=== PATIENT | male | born 1965 | race Caucasian/White ===

== ENCOUNTER 2023-09-12 18:51 | Inpatient (IN) | payer OTHER, SELFPAY ==
[2023-09-12 16:32] VITALS: BP 170/89; BMI 36.7
[2023-09-12 16:56] LABS: % Basophils 0.8 % (0-2); % Eosinophils 2.1 % (0-6); % Immature Granulocytes 0.4 % (0-0.5); % Monocytes 6.8 % (1.7-9.3); % Neutrophils 56.9 % (42.2-75.2); Absolute Basophils 0.1 10^3/uL (0-0.2); Absolute Eosinophils 0.3 10^3/uL (0-0.7); Absolute Immature Granulocytes 0.1 10^3/uL (0-0.05); Absolute Lymphocytes 3.9 10^3/uL (1.2-3.4); Absolute Monocytes 0.8 10^3/uL (0.1-0.6); Absolute Neutrophils 6.8 10^3/uL (1.4-6.5); Hematocrit 45.4 % (39.0-52.0); Hemoglobin 16.3 g/dL (13.0-18.0); Mean Corp Hgb Conc. 35.9 g/dL (33.0-37.0); Mean Corpuscular Hgb 30.3 pg (27.0-31.0); Mean Corpuscular Volume 84.4 fL (80.0-94.0); Mean Platelet Volume 8.9 fL (7.4-10.4); Nucleated Red Blood Cells % 0 % (-); Platelet Count 366 10^3/uL (130-400); Red Blood Cell Count 5.38 10^6/uL (4.70-6.10); Red Cell Dist. Width 12.3 % (11.5-14.5); White Blood Cell Count 11.9 10^3/uL (4.8-10.8)
[2023-09-12 17:03] VITALS: BP 114/76
[2023-09-12 17:11] LABS: ALT (SGPT) 28 U/L (0-50); AST (SGOT) 36 U/L (17-59); Albumin 3.9 g/dl (3.5-5.0); Alkaline Phosphatase 66 U/L (38-126); Blood Urea Nitrogen 16 mg/dl (9-20); Calcium 9.3 mg/dl (8.4-10.2); Carbon Dioxide 26 mmol/L (22-30); Chloride 105 mmol/L (98-107); Estimated Creatinine Clearance 124 ml/min; Glucose 183 mg/dl (70-99); Sodium 138 mmol/L (135-145); Total Bilirubin 0.8 mg/dl (0.2-1.3); Total Protein 6.4 g/dl (6.3-8.2); eGFR > 60.00
--- NOTE | 2023-09-12 17:17 | ED.GENMED ---
History of Present Illness
General
Chief Complaint: Chest Pain
Source: patient and records
Exam Limitations: none
Time Seen by Provider: 09/12/23 16:47
Nursing documentation reviewed up to this point in time: agreed with except (Patient now tells me he is having chest pain)
Travel History
Have you had any contact with someone who has COVID-19?: No
Do you have any symptoms of coronavirus? Fever > 100 degrees, chills, cough, shortness of breath, sore throat, loss of taste or smell, muscle aches, or headache?: No
History of Present Illness
History of Present Illness:
57-year male presents with chest pain shortness of breath started on Wednesday pressure in his chest into his back worse with exertion last night he had pain through the night at rest, which improved and then today around noon he had another episode
of pain at rest he is not a smoker, does not nitroglycerin to take, still having 3-4 out of 10 pain tells the pain is similar to his prior angina
Past History
Past History
ED Past Medical History: CAD, HTN and Other (Kidney stones)
ED Past Surgical History: Cardiac and Other (Fistula X2,)
Social History
Tobacco: Smoker
Alcohol: Occasional
Drug: None
Personal:
Living: with family
Employment: Employed
Review of Systems
Review of Systems
All Other Systems: Not applicable
Constitutional: Denies fever or fatigue
EENT: Reports no symptoms
Respiratory: Reports trouble breathing
Cardiac: Reports chest pain; Denies diaphoresis or palpitations
ABD/GI: Reports no symptoms
: Reports no symptoms
Musculoskeletal: Reports no symptoms
Skin: Reports no symptoms
Neurological: Reports no symptoms
Phy Exam
Physical Exam
Physical Exam:
Physical Exam
General: no apparent distress, not acutely ill
Neck: No jaundice
Heart: s1/s2 regular rate and rhythm, no murmur. equal radial pulses.
Lungs: no acute respiratory distress. clear bilaterally
Abdomen: Nontender
Neuro: alert and oriented. no focal neurological deficits
Skin: no rash
Psychiatric: well kept. interactive and cooperative
Extremities: no edema. no calf tenderness.
Scores
Heart Score for Chest Pain Patients
STEMI patient?: No
History: Highly Suspicious
ECG: Nonspecific Repolarization
Age: >45 - <65 years
Risk Factors: >/= 3 Risk Factors or History of CAD
Troponin: >/= 3 x Normal Limit
Heart Score for Chest Pain Patients: 8
Heart Score Risk: 72.7 % MACE over next 6 weeks
Course
Orders/Labs/Results
Orders:
Orders
09/12/23 16:31
Electrocardiogram (*1) Urgent
Reason for Study: Chest Pain
EKG- Treatment ONCE
09/12/23 16:46
Complete Blood Count/With Diff Urgent
Comprehensive Metabolic Panel Urgent
Troponin I Urgent
09/12/23 17:17
Aspirin Chewable [Low Strength Aspirin] 324 mg PO NOW STA
09/12/23 17:28
Heparin 4,000 units IV NOW STA
Nitroglycerin Sublingual [Nitrostat (Sublingual)] 0.4 mg SL [id number] PRN
Pharmacy Request to Place See Dose Instructions PO NOW STA
Discontinue all Active Warfarin orders?: Yes
09/12/23 17:29
PTT Urgent
Comment: Obtain baseline before beginning heparin infusion if not already collected
Nursing to Place Non Medication Order As Directed
Physician Order: PTT 6 hours after initial start of Heparin infusion
09/12/23 17:30
Heparin 42278 Units/250 ml 25,000 units in 250 ml IV PER PROTOCOL
Weight to be used for heparin protocol in kilograms (kg):: 122.47
Protocol:: Cardiac Tx/Acute Coronary
PTT Goal Range to be used:: PTT 73 to 111 seconds
Order type:: Initial
INITIAL Infusion Dose (UNITS/KG/hr) & then follow protocol:: 12 units/kg/hr
Infusion Dose in UNITS/hr & then follow protocol (UNITS/hr):: 1,000
INFUSION RATE in mL/hr & then follow protocol (mL/hr):: 10
PTT less than or equal to 64 seconds:: Increase rate by 200 units/hr (+ 2 mL/hr)
PTT 64.1 to 72.9 seconds:: Increase rate by 100 units/hr (+ 1 mL/hr)
PTT 73 to 111 seconds:: Target Range. No change in rate.
PTT 111.1 to 130.9 seconds:: Decrease rate by 100 units/hr (- 1 mL/hr)
PTT 131 to 199.9 seconds:: HOLD for 1 hr. Then decrease rate by 200 units/hr (- 2 mL/hr)
PTT greater than or equal to 200 seconds:: HOLD for 2 hrs & Notify Provider. Then decrease by 200 units/hr (-
2 mL/hr)
Lab follow-up:: Each change, PTT q6h until 2 consecutive are therapeutic. Then PTT
daily.
09/12/23 18:[address] See Dose Instructions IV DIRECTED
Abnormal Lab Results
09/12/23
16:46
WBC 11.9 H 10^3/uL
(4.8-10.8)
Abs Immat Gran (auto) 0.1 H 10^3/uL
(0-0.05)
Absolute Neuts (auto) 6.8 H 10^3/uL
(1.4-6.5)
Absolute Lymphs (auto) 3.9 H 10^3/uL
(1.2-3.4)
Absolute Monos (auto) 0.8 H 10^3/uL
(0.1-0.6)
Glucose 183 H mg/dl
(70-99)
Troponin I 1.060 H* ng/ml
09/12/23 16:46
09/12/23 16:46
Vital Signs
Initial and Last Documented VS:
Initial Vital Signs
Temp Pulse Resp BP Pulse Ox
98.5 F 91 16 170/89 99
09/12/23 16:32 09/12/23 16:32 09/12/23 16:32 09/12/23 16:32 09/12/23 16:32
Last Documented Vital Signs
Temp Pulse Resp BP Pulse Ox
98.5 F 80 16 114/76 95
09/12/23 16:32 09/12/23 17:03 09/12/23 17:03 09/12/23 17:03 09/12/23 17:03
*Pulse Oximetry
Patient hypoxic: no
*EKG
Interpreted by ED Provider?: Yes
Interpretation: abnormal
Comparison EKG: no comparison EKG present
Heart Rate: 78
Rate: normal
Rhythm: sinus
Ischemia: other (old inferior )
*Income Tax Investigator Interpretation
Rate: normal
Interpretation: normal
Heart Rate: 78
Rhythm: sinus
*Critical Care Note
Total Time (30-74mins, 75-104mins- exclusive of procedures): 31
Data Reviewed
Review of Other/Old Records Reveals: Labs, Progress Notes and Discharge Summary
Source: records
Update Note
Update Note:
Update troponin noted patient now tells me he is having chest pain 3-4 out of 10 will start nitrates heparin aspirin
ED Attending Note
-
Portions of this chart may have been created with voice recognition software.� Occasional wrong word or��sound alike� substitutions may have occurred due to the inherent limitations of voice recognition software.
Discharge Plan
Departure
Prescriptions:
No Action
atorvastatin 80 mg Tablet
80 mg PO QPM 30 Days Qty: 30 0RF
aspirin 81 mg Tablet,Chewable
81 mg PO DAILY 30 Days Qty: 30 0RF
clopidogrel 75 mg Tablet
75 mg PO DAILY Qty: 90 5RF
pantoprazole 40 mg Tablet,Delayed Release (Dr/Ec)
40 mg PO DAILY Qty: 90 5RF
metoprolol tartrate 25 mg tablet
25 mg PO DAILY
Referrals:
Sterling See DO [Family Provider] -
Interventions
Interventions:
*Risk Screen - Suicide Last Done: 09/12/23 16:34
*General Assessment Last Done: 09/12/23 17:02
*Neglect/Abuse Screening Last Done: 09/12/23 16:34
*ED COVID-19 Vaccine History Last Done: 09/12/23 16:32
ED- Cardiac Assessment Last Done: 09/12/23 17:02
[2023-09-12] MEDS: LOW STRENGTH ASPIRIN 324 MG PO (17:20)
--- NOTE | 2023-09-12 17:44 | HPS.HSE ---
Addendum entered and electronically signed by Romeo Vides MD 09/12/23 18:23:
Seen and examined by me independently in collaboration with the nurse practitioner Shola Mclaughlin.
Past medical history/social history/medication/allergies reviewed.
Lab data and imaging data reviewed.
Patient with known CAD and prior LAD and circumflex PCI presents with intermittent chest pain ongoing since Wednesday. Currently chest pain-free. Concerned about cardiac. His troponin is elevated on admission. EKG without any acute ST-T
changes. Clinical scenario suspicious for non-ST elevation DE. Patient states he is compliant with his medication at home. Continue with his home medication. Started on IV heparin. Cardiology consulted. Ordered as needed nitroglycerin for
chest pain.
Original Note:
Family Physician
-
Family Physician: Sterling See
Chief Complaint
-
chest pain
History of Present Illness
57-year male with PMH for CAD,HTN, HLD presents with chest pain shortness of breath started on Wednesday. stated pain was intermittent , radiating to back and shoulder blade. took Tylenol with no relief. last night it got worse. stated sob worse
with exertion. Denies headache, dizziness, syncopal episode .patient denied fever, chills .denied abdominal pain, nausea, vomiting, diarrhea. Patient denied dysuria hematuria.
On arrival her elevated Trope. Initiated on heparin drip. Admitted for further management
Medical History
Past Medical History
Past Medical History: Reports Other
Additional Past Medical History:
Coronary artery disease
Hypertension
Hyperlipidemia
Kidney stones
Past Surgical History: Reports Other
Additional Past Surgical History:
Torn meniscus repair
Social History
Tobacco: Non-smoker
Alcohol: None
Drug: None
Personal:
Living: With Family
Employment: Employed
Family History
Family History: Not pertinent
Allergies / Home Medications
Allergies reflects when Allergies were last updated in [facility].
Home Medications with original date entered in [facility]
Allergy/Medication List:
Allergies
Allergy/AdvReac Type Severity Reaction Status Date / Time
raspberry Allergy Hives - Verified 09/12/23 16:34
Raspberry
Jell-O
Home Medications
aspirin 81 mg chewable tablet 81 mg PO DAILY Blood clot prevention/tx 30 days #30 tabs 03/18/22
atorvastatin 80 mg tablet 80 mg PO QPM High cholesterol 30 days #30 tabs 03/18/22
clopidogrel 75 mg tablet 75 mg PO DAILY #90 tabs 03/27/22
pantoprazole 40 mg tablet,delayed release 40 mg PO DAILY #90 tabs 03/27/22
metoprolol tartrate 25 mg tablet 25 mg PO DAILY Blood pressure 04/12/23
Review of Systems
-
Constitutional: Reports No Symptoms
EENT: Reports No Symptoms
Respiratory: Reports Trouble Breathing
Cardiac: Reports Chest Pain
Abdomen/GI: Reports No Symptoms
: Reports No Symptoms
Musculoskeletal: Reports No Symptoms
Skin: Reports No Symptoms
Neurological: Reports No Symptoms
Endocrine: Reports No Symptoms
Hematologic/Lymphatic: Reports No Symptoms
Psych: Reports No Symptoms
Physical Exam
Vital Signs
Vital Signs
Temp Pulse Resp BP Pulse Ox
98.5 F 80 16 114/76 95
09/12/23 16:32 09/12/23 17:03 09/12/23 17:03 09/12/23 17:03 09/12/23 17:03
Physical Exam
General: Well Developed, Well Nourished and No Apparent Distress
HEENT: NormoCephalic, Moist mucous membranes and Atraumatic
Respiratory: Clear
Cardiac: S1/S2 and Regular Rhythm; No Murmur or Rub
GI: Soft, Non Tender, Non Distended and Normal Bowel Sounds; No Organomegaly
Rectal: Deferred by Provider
Musculoskeletal: No Clubbing, No Cyanosis and No Edema
Skin: No Rash
Neuro: AO x 3 and Nonfocal/grossly intact
Psych: Calm
Laboratory Results
-
09/12/23 16:46
09/12/23 16:46
Laboratory Results
Total Bilirubin 0.8 mg/dl (0.2-1.3) 09/12/23 16:46
AST 36 U/L (17-59) 09/12/23 16:46
ALT 28 U/L (0-50) 09/12/23 16:46
Alkaline Phosphatase 66 U/L (38-126) 09/12/23 16:46
Troponin I 1.060 ng/ml H* 09/12/23 16:46
Data Reviewed
-
Lab Data: Labs Reviewed by me
Impression/Plan
-
# Chest pain associated with sob likely from acute coronary syndrome
-hxt of CAD with CAD stents x2
-Troponin 1.06
-Continue to trend troponin
-heparin drip
-asa, Plavix continued
-cardiology consulted
# Chronic leukocytosis
-WBCs 11.9
-Afebrile
-Continue to monitor
#Essential hypertension
-BP stable
-metoprolol continued
#Hyperlipidemia
-on statin
#Morbid obesity due to excess calories
#DVT prophylaxis
-heparin drip
CODE status
-full code
[2023-09-12 17:58] LABS: APTT 32.6 Sec (23.4-35.0)
[2023-09-12 18:04] VITALS: BP 118/79
[2023-09-12] MEDS: HEPARIN 4000 UNITS IV (18:10)
[2023-09-12] MEDS: HEPARIN 25000 UNITS/250 ML IV (18:10)
[2023-09-12 19:00] VITALS: BP 114/83
--- NOTE | 2023-09-12 19:25 | EDRN ---
Report received introduced myself to patient who is complaining of 3/10 chest pain, will give Nitro per PRN order, called and spoke with nurse upstairs to inform her of this as well as patient will be heading upstairs
[2023-09-12] MEDS: NITROSTAT (SUBLINGUAL) 0.400000000000000022 MG SL (19:28)
--- NOTE | 2023-09-12 20:00 | PTCARENOTE ---
Patient received from ED chest pain free following 1 SL nitro. Heaprin infusing at 1000 units/hr. Plan of care reviewed, NSR on telemetry, call curry in reach
[2023-09-12 20:15] VITALS: BMI 38.8
[2023-09-12 22:46] VITALS: BP 115/73
[2023-09-12] MEDS: NITRO-BID 1 INCH TOPICAL (23:25)
[2023-09-13] VITALS (17 sets, daily range): BP systolic 105–133; BP diastolic 66–95
[2023-09-13 00:02] LABS: APTT 54.1 Sec (23.4-35.0)
[2023-09-13] MEDS: NITRO-BID 1 INCH TOPICAL ×2 (05:44→12:55)
[2023-09-13 06:23] LABS: % Basophils 0.9 % (0-2); % Eosinophils 4.2 % (0-6); % Immature Granulocytes 0.5 % (0-0.5); % Monocytes 9.5 % (1.7-9.3); % Neutrophils 47.9 % (42.2-75.2); Absolute Basophils 0.1 10^3/uL (0-0.2); Absolute Eosinophils 0.5 10^3/uL (0-0.7); Absolute Immature Granulocytes 0.1 10^3/uL (0-0.05); Absolute Lymphocytes 4.1 10^3/uL (1.2-3.4); Absolute Monocytes 1.1 10^3/uL (0.1-0.6); Absolute Neutrophils 5.3 10^3/uL (1.4-6.5); Hematocrit 42.8 % (39.0-52.0); Hemoglobin 14.9 g/dL (13.0-18.0); Mean Corp Hgb Conc. 34.8 g/dL (33.0-37.0); Mean Corpuscular Volume 86.3 fL (80.0-94.0); Nucleated Red Blood Cells % 0 % (-); Platelet Count 334 10^3/uL (130-400); Red Blood Cell Count 4.96 10^6/uL (4.70-6.10); Red Cell Dist. Width 12.3 % (11.5-14.5)
[2023-09-13 06:27] LABS: APTT 56.6 Sec (23.4-35.0)
[2023-09-13 06:49] LABS: Blood Urea Nitrogen 16 mg/dl (9-20); Calcium 9.2 mg/dl (8.4-10.2); Carbon Dioxide 24 mmol/L (22-30); Chloride 107 mmol/L (98-107); Estimated Creatinine Clearance > 125 ml/min; Glucose 111 mg/dl (70-99); HDL Cholesterol 50 mg/dl; LDL Cholesterol, Calculated 69 mg/dl; Potassium 4.3 mmol/L (3.5-5.1); Sodium 137 mmol/L (135-145); Total Cholesterol 159 mg/dl (50-199); Triglyceride 200 mg/dl (10-149); Very Low Density Lipoprotein 40 mg/dl (0-30); eGFR > 60.00
--- NOTE | 2023-09-13 07:26 | CON.CAR ---
Addendum entered and electronically signed by Jessica Helton DO 09/13/23 09:19:
I saw and examined the patient.
The Weight Count Operator's note was reviewed and I agree with the note.
Comment: Patient seen and examined with cardiac PA. Ryan is a 57-year-old male with past medical history of NSTEMI 03/2022, CAD s/p LAD & LCX GRAZYNA, HTN, HLD, obesity, tobacco abuse, family history of premature coronary artery disease who presents to ED
09/12/2023 with chest pain and shortness of breath.� He had NSTEMI w/ LAD GRAZYNA 03/17/2022 then LCX GRAZYNA 03/27/2022 for recurrent angina. He developed recurrent exertional chest pain and shortness of breath on Wednesday while walking his dog similar to
prior angina. He has had multiple episodes of chest pain daily with minimal exertion at a rest prompting him to come to ER. Troponin initially was 1.060 then increased to 1.4. ECG showed sinus rhythm without acute ischemic issues.� He was started on
IV heparin and has remained CP free since.� At time of the evaluation patient lying comfortably in bed and is CP free. Patient reports that he has been complaint with ASA, Plavix, statin and Lopressor.
GEN: NAD, AAOx3
HEENT: mmm
LUNGS: CTA, no wheezes/rales
CV: Reg, S1/S2, no murmur, rubs or gallops
ABD: soft, BS+, NT/ND
EXT: No edema, clubbing or cyanosis
NEURO: Gross non-focal
Plan:
-Presented 09/12/2023 with intermittent chest pain and SOB with abnormal CTNI consistent with USA/NSTEMI
-Abnormal troponin, 1.060-> 1.4. Trend to peak.
-Continue Heparin gtt
-Continue ASA/Plavix [ not tolerate Brilinta due to SOB.]
-He has known residual distal LAD disease and RCA disease s/p PCI in 2021 - C reviewed with interventional cardiology
-Plan for C today
-Check echo, previously had preserved EF in 2021
-Continue high dose Atorvastatin. Hyperlipidemia Lipids 09/13/2023 Tc 159, HDL 50, LDL 69, trgs 200.
-Triglycerides and Glucose elevated. Check HgA1c
Original Note:
Consultation
Consultation Request
Date/Time Consultation Requested: 09/12/2023
Date/Time Consultation Performed: 09/13/2023
Requesting Provider: Dr. Camarena
Performing Provider: Vianey Crabtree PA-C for Dr. Jessica Helton
Reason for Consultation: Chest pain
Medical History
-
History of Present Illness:
He is a 57-year-old male with past medical history of NSTEMI 03/2022, CAD s/p LAD & LCX GRAZYNA, HTN, HLD, obesity, tobacco abuse, family history of premature coronary artery disease who presents to ED 09/12/2023 with chest pain and shortness of breath.
He had NSTEMI w/ LAD GRAZYNA 03/17/2022 then LCX GRAZYNA 03/27/2022 for recurrent angina. He was doing well until about 1 week ago when developed exertional chest pain while walking his dog associated with dyspnea on exertion. Over the weekend he then started
having intermittent chest pain and SOB at rest prompting him to come to the ED. Troponin initially was 1.060 then increased to 1.4. ECG showed sinus rhythm without acute ischemic issues. He was started on IV heparin and has remained CP free since.
At time of the evaluation patient lying comfortably in bed and is CP free. Patient reports that he has been complaint with ASA, Plavix, statin and Lopressor.
PMH:
CAD
s/p NSTEMI, peak trop 0.3, s/p LAD 2.5 x 23 mm Xience stent (03/17/2022)
s/p 3.0 x 16 mm Promus stent mid Circumflex (03/27/22), patent LAD stent using the ulnar artery with ultrasound guidance w/ Right forearm hematoma
Persistent leukocytosis
Left meniscus surgery 03/12/22
Obesity
former smoker
FH of CAD
Social History
Tobacco: Former Smoker
Alcohol: Occasional
Drug: None
Personal:
Living: With Family
Employment: Employed (inspector conveyor line)
Family History
Family History: Early CAD (in brother in 30s, CABG in father in 70s)
Allergies / Home Medications
Allergy/AdvReac Type Severity Reaction Status Date / Time
raspberry Allergy Hives - Verified 09/12/23 20:11
Raspberry
Jell-O
Medication Instructions Recorded Confirmed Type
aspirin 81 mg chewable tablet 81 mg PO DAILY Blood clot 03/18/22 09/12/23 Rx
prevention/tx 30 days #30 tabs
atorvastatin 80 mg tablet 80 mg PO QPM High cholesterol 30 03/18/22 09/12/23 Rx
days #30 tabs
clopidogrel 75 mg tablet 75 mg PO DAILY #90 tabs 03/27/22 09/12/23 Rx
pantoprazole 40 mg tablet,delayed 40 mg PO DAILY #90 tabs 03/27/22 09/12/23 Rx
release
metoprolol tartrate 25 mg tablet 12.5 mg PO DAILY Blood pressure 04/12/23 09/12/23 History
Review of Systems
-
History Source: Patient
All other systems: Negative unless noted
Physical Exam
Vital Signs
Temp Pulse Resp BP Pulse Ox
98.0 F 72 16 116/77 96
09/13/23 05:43 09/13/23 05:44 09/13/23 05:43 09/13/23 05:44 09/13/23 05:44
GEN: No distress, awake, Ox3
HEENT: supple, anicteric, mmm
LUNGS: CTA, no wheezes/rales
CV: Reg, S1/S2, no murmur, rubs or gallops
ABD: soft, BS+, NT/ND
EXT: No edema, clubbing or cyanosis
NEURO: Gross non-focal
SKIN: No rash, warm, dry
Lab Results
09/13/23 05:52
09/13/23 05:52
Troponin I 1.400 ng/ml H* 09/13/23 05:52
Impression / Plan
-
PCP: Dr. See
Primary Gypsum Block Setter: Dr. Brown
Assessment:
Presented 09/12/2023 with intermittent chest pain and SOB
Abnormal troponin
NSTEMI
CAD
s/p NSTEMI, peak trop 0.3, s/p LAD 2.5 x 23 mm Xience stent (03/17/2022)
s/p 3.0 x 16 mm Promus stent mid Circumflex (03/27/22), patent LAD stent using the ulnar artery with ultrasound guidance w/ Right forearm hematoma
Persistent leukocytosis
Left meniscus surgery 03/12/22
Obesity
former smoker
FH of CAD
ECHO 03/17/22: EF 55-60%, mod cLVH, no significant valvular disease
Cardiac cath 03/27/2022: LAD 40% stenosis proximal to patent mid stent (2.5 x 23 mm Xience), distal LAD 80% beyond 3rd diag. L CX: Mid 80% stenosis s/p GRAZYNA 3.0 x 16 mm Promus stent, RCA/RPDA: 50% proximal stenosis
Cardiac Cath 09/13/23: later today
Plan:
He is a 57-year-old male with past medical history of NSTEMI 03/2022, CAD s/p LAD & LCX GRAZYNA, HTN, HLD, obesity, tobacco abuse, family history of premature coronary artery disease who presents to ED 09/12/2023 with chest pain and shortness of breath.
He had NSTEMI w/ LAD GRAZYNA 03/17/2022 then LCX GRAZYNA 03/27/2022 for recurrent angina. He was doing well until about 1 week ago when developed exertional chest pain while walking his dog associated with dyspnea on exertion. Over the weekend he then started
having intermittent chest pain and SOB at rest prompting him to come to the ED. Troponin initially was 1.060 then increased to 1.4. ECG showed sinus rhythm without acute ischemic issues. He was started on IV heparin and has remained CP free since.
At time of the evaluation patient lying comfortably in bed and is CP free. Patient reports that he has been complaint with ASA, Plavix, statin and Lopressor.
-Presented 09/12/2023 with intermittent chest pain and SOB. Initially occurred w/ activity then progressed to rest pain.
-Abnormal troponin, 1.060-> 1.4 concerning for NSTEMI. Continue Heparin gtt
-He has known residual distal LAD disease and RCA disease. Will proceed with cardiac cath today.
-Maintained on ASA and Plavix (denies missing any doses). Did not tolerate Brilinta due to SOB.
-Continue Lopressor
-Check echo, previously had preserved EF in 2021
-Hyperlipidemia Lipids 09/13/2023 Tc 159, HDL 50, LDL 69, trgs 200. Continue high dose Atorvastatin.
-Triglycerides and Glucose elevated. Check HgA1c
Data Reviewed
-
EKG: Report Reviewed by me, Discussed with Physician, Discussed with Nurse and Discussed with Patient
Labs: Labs Reviewed by me, Discussed with Physician, Discussed with Nurse and Discussed with Patient
Old Records: Reviewed
[2023-09-13] MEDS: TYLENOL 650 MG PO (08:05)
[2023-09-13] MEDS: LOW STRENGTH ASPIRIN 81 MG PO (08:16)
[2023-09-13] MEDS: PLAVIX 75 MG PO (08:16)
[2023-09-13] MEDS: LOPRESSOR 12.5 MG PO (08:16)
[2023-09-13 09:27] LABS: Glycohemoglobin (HgbA1c) 6.3 % (4.0-5.6)
--- NOTE | 2023-09-13 09:43 | CM ---
Reviewed chart.. Met with Mr. Umaña to review discharge plans. He states prior to admission he resides in a two story home with two steps to enter. He states he has a full flight of steps to get to bedroom/full bathroom. He states prior to
admission he was independent with ambulation and adls. He states he does not have any DME in the home. He states he has a prescription plan and uses [facility]. Medical work-up in progress. The discharge plan is to return home with his spouse
when medically stable.
--- NOTE | 2023-09-13 09:50 | W.PN.HOSP.TC ---
Today's Communication/Plan
-
For cardiac catheterization today
Assessment / Plan
Assessment / Plan
# NSTEMI
History of coronary artery disease status post stent placement x 2
Troponin peaked at 1.4, now downtrending
Appreciate cardiology input, for cardiac catheterization today
Continue aspirin, Plavix, heparin drip, atorvastatin, metoprolol
LDL at goal at 69
#Glucose intolerance #prediabetes
Hemoglobin A1c 6.3
Consult diabetes nurse practitioner for diabetes education
# Chronic leukocytosis
No signs or symptoms of infection, continue to monitor off antibiotics
#Hyperlipidemia
Continue statin
#Morbid obesity due to excess calories
Affects all aspects of care
DVT prophylaxis�heparin drip
Full code
Updated at bedside 09/12
Physical Exam
General: Obese, no acute distress
HEENT: Normocephalic, Atraumatic, EOMI, MMM
Respiratory: Clear to Auscultation bilaterally
Cardiac: Normal S1/S2, Regular Rate and Rhythm
GI: Soft, Nontender, Nondistended, Normal Bowel Sounds
Extremities: No Clubbing, Cyanosis, or Edema
Neuro: Nonfocal/Grossly Intact
Psych: Calm, Cooperative
Derm: No Visible lesions
Anticipated Discharge: Within 24 hours
Subjective/Interval History
-
Date of Service: September 13, 2023
No chest pain, shortness of breath, or palpitations. No nausea, no vomiting. Lightheadedness and dizziness resolved.
Objective Data
-
Labs:
Laboratory Results
09/12/23 09/13/23 09/13/23
23:34 05:52 12:45
WBC 11.0 H
Hgb 14.9
Hct 42.8
Plt Count 334
APTT 54.1 H 56.6 H Pending
Sodium 137
Potassium 4.3
Chloride 107
Carbon Dioxide 24
BUN 16
Creatinine 0.9
Glucose 111 H
Calcium 9.2
Vital Signs:
Vital Signs
Temp Pulse Resp BP Pulse Ox
98.1 F 98 18 119/79 96
09/13/23 08:00 09/13/23 09:00 09/13/23 08:00 09/13/23 08:16 09/13/23 08:00
I&O
09/12/23 09/13/23 09/14/23
06:59 06:59 06:59
Intake Total 240 / 240 140 / 140
Balance 240 / 240 140 / 140
[2023-09-13 13:23] LABS: APTT 71.4 Sec (23.4-35.0)
[2023-09-13 14:12] LABS: ACT-LR - POC 327 Seconds (116-155)
[2023-09-13 14:41] LABS: ACT-LR - POC 377 Seconds (116-155)
[2023-09-13] MEDS: NSS 1000 IV (16:00)
[2023-09-13 16:18] LABS: Hematocrit 44.3 % (39.0-52.0); Hemoglobin 15.2 g/dL (13.0-18.0)
[2023-09-13 16:34] LABS: Total CK 98 U/L (55-170)
[2023-09-13] MEDS: SUBLIMAZE 25 MCG IV ×2 (16:34→17:10)
--- NOTE | 2023-09-13 16:36 | PTCARENOTE ---
Pt had a small area of firmness medial to his rt groin femstop placement. Manual pressure applied x [address] Maldonado reevaluated. SIte soft. IVU RN Ame also felt groin and will continue to monitor.
[2023-09-13 17:13] LABS: CKMB 2.3 ng/ml (0.0-2.4)
--- NOTE | 2023-09-13 18:24 | ITS.CL.CATH ---
[facility] - Catheterization
Cardiac Catheterization
Procedure Report:
LEFT HEART CATH AND CORONARY INTERVENTION
Date of Procedure: September 13, 2023
Referring: Dr. Jacinto Witt
PROCEDURES:
1. Left heart catheterization with coronary and single-plane left ventriculography
2. Disruption of the ostial RCA with catheter associated dissection. Successful stenting with placement of a 3.5 x 23 mm Xience stent that was postdilated to high pressures with a 3.75 mm noncompliant balloon
3. Successful stenting of the distal RCA with a 3.0 x 23 mm Xience stent that was postdilated with a 3 mm noncompliant balloon distally and a 3.75 mm noncompliant balloon proximally
INDICATION: This is a 57-year-old gentleman who was admitted to [facility] on 03/17/2022 and was found to have high-grade mid LAD stenosis which was successfully stented with a 2.5 x 23 mm Xience stent that was postdilated with a 2.5 mm
noncompliant balloon. He returned with chest discomfort on 03/27/2022 and underwent successful stenting of the mid circumflex with a 3.0 x 16 mm Promus stent that was postdilated with a 3 mm noncompliant balloon. He is felt well since these
original stent procedures and resumed normal activity. Unfortunately, he experienced recurring chest tightness and is now admitted to [facility] with chest pain and elevated troponin measuring 1.06 ng/mL on admission and increasing to 1.4
ng/mL.
ACCESS: There is no right radial pulse. Arterial access was obtained using ultrasound guidance and micropuncture technique. A 6 Hungarian sheath was inserted in the right common femoral artery.
HEMODYNAMICS (mmHg):
AO (s/d, m) : 119/82
LV (s/d) : 112/18
LVEDP : 24
CORONARY FINDINGS
Dominance: Right
LEFT MAIN: Normal
LEFT ANTERIOR DESCENDING: The LAD arises normally from the left main and runs in the anterior interventricular groove. There is a stent in the mid LAD that is widely patent. 3 diagonal branches vessels arise from the LAD. The first diagonal
branch arises from the proximal third of the vessel and is widely patent. The stent spans the origin of the second diagonal branch which remains widely patent. The LAD begins to taper beyond the second diagonal branch to a small caliber vessel.
There is an 80% stenosis beyond a small third diagonal branch. The LAD becomes a very small caliber vessel as it approaches but does not wraparound the apex.
CIRCUMFLEX: The stent in the mid circumflex beyond a small OM1 is widely patent. There is a long 50-60% stenosis in the only sizable obtuse marginal branch before the bifurcation and the vessel into 2 smaller daughter branches
RIGHT CORONARY: The right coronary artery is a dominant vessel. There is a new 90% distal RCA stenosis. The PDA has a 60-70 % proximal stenosis and diffuse luminal irregularities. The posterolateral branch is widely patent
VENTRICULOGRAPHY: Left ventriculography was performed in an CALVIN projection. The digital single-plane left ventricular ejection fraction is estimated at 55% with moderate anterolateral hypokinesis noted
ANGIOPLASTY PROCEDURE DETAIL: Upon review of the diagnostic catheterization films the decision was made to proceed with percutaneous revascularization of the new high-grade distal RCA stenosis. Intravenous heparin was administered and the ACT was
monitored. The patient is chronically treated with aspirin and clopidogrel.
The origin of the right coronary artery was cannulated with a 6 Hungarian diagnostic JR4 catheter. A gentle puff of contrast was notable for interval contrast staining and new 100% occlusion of the proximal RCA likely related to disruption of a plaque
at the origin of the RCA. We fortunately were able to advance a BMW guidewire into the distal RCA and anterograde flow was restored following balloon dilation of the ostial-proximal RCA with a 2.5 x 20 mm Trek balloon. The balloon catheter was
advanced distally to near the crux of the vessel and across the high-grade distal RCA stenosis.
A 3.0 x 23 mm Xience stent was then advanced to the distal RCA where it was implanted at 12 dominick. The ostial-proximal RCA was stented with a 3.5 x 23 mm Xience stent that was implanted at 12 dominick. The distal stent was postdilated distally with a 3
mm noncompliant balloon and with a 3.75 mm noncompliant balloon in the proximal and midportion of the stent. The ostial-proximal RCA stent was postdilated to high pressures with a 3.75 mm noncompliant balloon.
The ACT was monitored throughout the procedure with a final ACT measuring 377 sec. A 6 Fr. Angioseal was used to close the right common femoral arteriotomy site. Unfortunately, the patient experienced significant oozing around the Angioseal and
developed a femoral / pubic hematoma. Manual pressure was held for 30 min. The patient experienced severe back discomfort. We moved from the catheterization table to his bed and placed a FemoStop. No bruit was noted.
COMPLICATIONS: Catheter associated dissection of ostial-proximal RCA and unsuccessful Angioseal of RFA. Hematoma and prolonged manual hold of right femoral arteriotomy site.
RADIATION SUMMARY: Fluoro Time (min): 17.7, Dose (mGy): 3768, DAP (Gy.cm2) : 255
CONCLUSIONS
1. Complex successful stenting of the distal RCA with a 3.0 x 23 mm Xience stent. There was also catheter associated ostial-proximal RCA dissection that needed treatment with placement of a 3.5 x 23 mm Xience stent
2. Patent mid LAD and mid circumflex stents as described above.
3. Unsuccessful Angioseal with significant post deployment oozing / hematoma. Manual pressure was held followed by placement of FemoStop
RECOMMENDATIONS
1. Will check H&H as well as obtain stat type and screen
2. FemoStop orders for gradual reduction in occlusive pressures
3. Continue aspirin and clopidogrel
4. Guideline directed medical therapy for risk modification
Copy to: Dr. Kelly Brown
[2023-09-13 18:40] LABS: Hematocrit 44.9 % (39.0-52.0); Hemoglobin 15.5 g/dL (13.0-18.0)
--- NOTE | 2023-09-13 19:21 | W.PN.UPDATE ---
Update Note
Progress Note Update
Patient continues to experience severe pain in his back and at the right femoral arteriotomy site. I have been checking the groin much of the afternoon and have been in contact with nursing and Vascular surgery. We have checked H/H x 2; 15.2 and
15.5 g/dl. Blood pressures have been stable. He is still experiencing severe pain and a hematoma is again noted in right femoral / pubic region.
-Will obtain stat CT angiogram of abdomen and pelvis
[2023-09-13 19:33] LABS: Hematocrit 42.8 % (39.0-52.0); Hemoglobin 14.8 g/dL (13.0-18.0)
--- NOTE | 2023-09-13 19:34 | PTCARENOTE ---
Received pt from cardiac clinical laboratory technologist w/ femstop on right groin site at 130 mm/hg. Pt still appeared to have an unmeasureable hematoma at right groin site. Cardiac clinical laboratory technologist staff at bedside evaluated hematoma and femstop. Manual pressure for 20
minutes. Fentanyl 25 mcg x2 given for ongoing 8:10 back pain and right groin tenderness. Frequent checks of right groin site and decreasing of femstop to 85 mm/hg by 1805. Pt's groin site still 'puffy' and tender on palpation. MD at bedside to
evaluate pt. Femstop removed and manual pressure for 10 minutes by . H and H stable. Right groin site continues to increase in 'puffiness' and tenderness. Pt's back pain remains 8 out of 10. Pt in CT scan at this time with night nurse RN's.
[2023-09-13] MEDS: DILAUDID 0.5 MG IV ×2 (20:31→23:30)
[2023-09-13] MEDS: MIRALAX PO (20:48)
--- NOTE | 2023-09-13 20:50 | PTCARENOTE ---
patient taken to Abd/pelvis CT scan at change of shift. Emelia MCDOWELL updated when returned from CT scan and at the bedside. R groin site firm, tender, site marked. R groin pain and back pain per patient. manual pressure. Dilaudid 0.5 mg IV given,
see mar. improved pain after medication per patient. after manual pressure, site softened. sandbag placed. b/l LE cold to touch. doppler pulses present. Dr. Maldonado at the bedside; updated patient and . vascular team called in. bp 118/66. HR SR
80s. placed on 2L NC per patients request for comfort. sp02 100%.
--- NOTE | 2023-09-13 22:39 | CON.VAS ---
Consultation
Consultation Request
Date/Time Consultation Requested: 09/13/23
Date/Time Consultation Performed: 09/13/23
Requesting Provider: Joel
Performing Provider: Franko
Reason for Consultation: Right Groin Hematoma
Medical History
-
Chief Complaint: Right Groin PAin
History of Present Illness:
57M hx of CAD s/p PCI via R FORM DESIGNER access earlier ~1400 found to have R groin hematoma after percutanenous access. Angioseal was used but seemed to have failed. Pt had significant pain over groin and manual pressure was held for over an hour. CTA was
obtained demonstrating large right groin hematoma with active extrav. Upon my review, there appears to be a large hematoma with small active chamber. On exam, the patient does not have any outward ecchymosis, expanding hematoma or significant pain.
Bedside nurse states hematoma has not increased in size and has been stable or even smaller. Pt is HD stable without receiving beta blockers in the last 12 hours. HR is 80s and SBP 120s. Comfortable.
Past Medical History
Past Medical History: CAD and HTN
Past Surgical History: None
Social History
Tobacco: Non-Smoker
Allergies / Home Medications
Allergy/AdvReac Type Severity Reaction Status Date / Time
raspberry Allergy Hives - Verified 09/12/23 20:11
Raspberry
Jell-O
Medication Instructions Recorded Confirmed Type
aspirin 81 mg chewable tablet 81 mg PO DAILY Blood clot 03/18/22 09/12/23 Rx
prevention/tx 30 days #30 tabs
atorvastatin 80 mg tablet 80 mg PO QPM High cholesterol 30 03/18/22 09/12/23 Rx
days #30 tabs
clopidogrel 75 mg tablet 75 mg PO DAILY #90 tabs 03/27/22 09/12/23 Rx
metoprolol tartrate 25 mg tablet 12.5 mg PO DAILY Blood pressure 04/12/23 09/12/23 History
pantoprazole 40 mg tablet,delayed 40 mg PO DAILY Gastrointestinal 09/13/23 09/12/23 History
release Issue
Review of Systems
-
Constitutional: Reports No Symptoms
EENT: Reports No Symptoms
Respiratory: Reports No Symptoms
Cardiac: Reports No Symptoms
Abdomen/GI: Reports No Symptoms
: Reports No Symptoms
Musculoskeletal: Reports No Symptoms
Skin: Reports No Symptoms
Neurological: Reports No Symptoms
Endocrine: Reports No Symptoms
Physical Exam
Vital Signs
Temp Pulse Resp BP Pulse Ox
98.1 F 81 20 118/66 100
09/13/23 20:46 09/13/23 20:36 09/13/23 20:46 09/13/23 20:36 09/13/23 20:46
Lab Results
09/13/23 19:26
09/13/23 05:52
Troponin I 1.040 ng/ml H* D 09/13/23 12:58
Physical Exam
General: Well Developed
HEENT: Normocephalic
Respiratory: Clear
Cardiac: S1/S2
GI: Soft, Non Tender and Non Distended
Musculoskeletal: Other (soft right groin without large expanding hematoma or ecchymosis )
Skin: Warm
Neuro: Awake, Alert, Oriented and AO x 3
Hematologic/Lymphatic: No Lymphadenopathy
Pulses: Left Femoral: +2, Right Femoral: +1 (pulsatile mass), Left Dorsalis Pedis: +1, Right Dorsalis Pedis: +1 and Bilateral Posterior Tibial: +2
Assessment / Plan
-
57M s/p R FORM DESIGNER access PCI with possible R groin pseudaneurysm
-I had a long discussion with the patient and Dr. Maldonado regarding the patient's R groin hematoma. Although on CTA, there is a large hematoma with extrav, clinically, the patient is stable with no signs of a large expanding hematoma. The patient
likely has a pseudoaneurysm that is contained and with it's long neck, it is likely easily treatable with a thrombin injection. This would save the morbidity of a large groin incision with hematoma evacuation in an overweight patient. Should an
expanding hematoma develop or the patient show signs of hemodynamic instability, the patient will be taken to the operating room for open repair. This was also discussed with the bedside nurse who will continue to monitor the patient overnight.
Data Reviewed
-
CT Scan: Image Personally Visualized and interpreted
Medical Tests (Nuc Med, Echo etc): Image Personally Visualized and interpreted
Labs: Labs Reviewed by me
[2023-09-13 23:29] LABS: Total CK 102 U/L (55-170)
[2023-09-13] MEDS: LIPITOR 80 MG PO (23:30)
[2023-09-14] VITALS (26 sets, daily range): BP systolic 91–129; BP diastolic 68–92
[2023-09-14] MEDS: ROXICODONE 10 MG PO ×2 (00:10→04:34)
--- NOTE | 2023-09-14 00:14 | PTCARENOTE ---
patient complaining of 7/10 lower back and r groin pain. mildPRN Dilaudid given, see mar. Emelia MCDOWELL at the bedside to recheck groin site. site stable, soft, tender to touch.
--- NOTE | 2023-09-14 00:18 | PTCARENOTE ---
small area of firmness into R pubic area/R groin; ecchymotic. site marked.
patient complaining of 7/10 lower back and r groin pain. PRN Dilaudid given, see sep. Emelia MCDOWELL at the bedside to recheck groin site. no other changes at this time. + doppler DP pulse. sandbag removed. patient still complaining of pain-oxy 10 mg
given, see sep. bp 114/69.HR 70s. educated patient to inform RN with any changes.
[2023-09-14] MEDS: DILAUDID 0.25 MG IV ×3 (01:30→12:36)
--- NOTE | 2023-09-14 02:04 | W.PN.UPDATE ---
Update Note
Progress Note Update
-after lying on his R side for about an hour for comfort, pt noted to have bruising and slight increase in fullness and hardness at R groin - manual pressure was placed again for 25 min (at 1:25-1:50am) and iv Dilaudid given for pain. 10 lbs sandbag
placed back on R groin. RLE DP is Dopplerable and PT is palpable. Pt is hemodynamically stable- BP was 108/81, hr 80s and re-check BP after holding manual pressure was 124/69, hr 82, pOx 96%.
-will continue to monitor closely
-will check am labs early
--- NOTE | 2023-09-14 02:05 | PTCARENOTE ---
during groin check, increased ecchymosis noted at R groin site. firm, tender to touch. vital signs stable at this time. patient states increased lower back pain and R groin pain. updated Tsilina CV PA and at the bedside. manual pressure held for 25
minutes and sandbag reapplied. Dilaudid 0.25 mg IV given x2 doses, see mar. R dp doppler pulse present; PT pulse palpable. bp 128/89, HR 80s.
[2023-09-14 04:04] LABS: % Basophils 0.5 % (0-2); % Eosinophils 1.9 % (0-6); % Immature Granulocytes 0.3 % (0-0.5); % Lymphocytes 25.3 % (20.5-51.1); Absolute Basophils 0.1 10^3/uL (0-0.2); Absolute Eosinophils 0.3 10^3/uL (0-0.7); Absolute Immature Granulocytes 0.1 10^3/uL (0-0.05); Absolute Lymphocytes 3.8 10^3/uL (1.2-3.4); Absolute Monocytes 1.4 10^3/uL (0.1-0.6); Absolute Neutrophils 9.5 10^3/uL (1.4-6.5); Hematocrit 42.6 % (39.0-52.0); Hemoglobin 14.8 g/dL (13.0-18.0); Mean Corp Hgb Conc. 34.7 g/dL (33.0-37.0); Mean Corpuscular Hgb 30.5 pg (27.0-31.0); Mean Corpuscular Volume 87.7 fL (80.0-94.0); Mean Platelet Volume 9.2 fL (7.4-10.4); Nucleated Red Blood Cells % 0 % (-); Platelet Count 323 10^3/uL (130-400); Red Blood Cell Count 4.86 10^6/uL (4.70-6.10); Red Cell Dist. Width 12.3 % (11.5-14.5)
[2023-09-14 04:19] LABS: Blood Urea Nitrogen 12 mg/dl (9-20); Calcium 8.8 mg/dl (8.4-10.2); Carbon Dioxide 27 mmol/L (22-30); Chloride 106 mmol/L (98-107); Estimated Creatinine Clearance > 125 ml/min; Glucose 106 mg/dl (70-99); Potassium 4.2 mmol/L (3.5-5.1); Sodium 134 mmol/L (135-145); Total CK 109 U/L (55-170); eGFR > 60.00
[2023-09-14] MEDS: DILAUDID 0.5 MG IV ×2 (04:35→09:00)
[2023-09-14 04:46] LABS: CKMB 3.8 ng/ml (0.0-2.4)
--- NOTE | 2023-09-14 04:57 | PTCARENOTE ---
sandbag removed. R groin site soft at this time, puffy, ecchymotic. tender to touch per patient. patient continues to complain of lower back pain and groin pain, 01/11. patient states 'more back pain than groin.' PRN Dilaudid and oxy 10 mg given, see
mar. no other changes. vitals stable. bp 117/79. HR 88. 98% on RA.
--- NOTE | 2023-09-14 08:00 | PTCARENOTE ---
Resumed care of patient from previous RN. resting in bed at time of assessment. R remains ecchymotic but soft. 99% RA, lungs clear. RLE DP is by doppler and PT is palpable. VSS. Set via stretcher to US. will continue to monitor closely
--- NOTE | 2023-09-14 08:10 | W.PN.HOSP.TC ---
Today's Communication/Plan
-
see bold
Assessment / Plan
Assessment / Plan
# NSTEMI
History of coronary artery disease status post stent placement x 2
Troponin peaked at 1.4, now downtrending
Appreciate cardiology input, s/p cardiac catheterization w/ stent to RCA
S/p heparin ggt
Continue aspirin, Plavix, atorvastatin, metoprolol
LDL at goal at 69
#Right groin hematoma
Patient received ultrasound-guided thrombin injection on 09/13
Repeat groin ultrasound recommended tomorrow morning
#Lower back pain status post fall
Continue oxycodone as needed
#Glucose intolerance #prediabetes
Hemoglobin A1c 6.3
Consulted diabetes nurse practitioner for diabetes education
# Chronic leukocytosis
Patient is afebrile
No signs or symptoms of infection, continue to monitor off antibiotics
#Hyperlipidemia
Continue statin
#Morbid obesity due to excess calories
Affects all aspects of care
DVT prophylaxis�SCDs due to R groin hematoma
Full code
Updated at bedside 09/12
Physical Exam
General: Obese, no acute distress
HEENT: Normocephalic, Atraumatic, EOMI, MMM
GI: Soft, Nontender, Nondistended, Normal Bowel Sounds
+R groin hematoma noted
Extremities: No Clubbing, Cyanosis, or Edema
Neuro: Nonfocal/Grossly Intact
Anticipated Discharge: Within 24 hours
Subjective/Interval History
-
Date of Service: September 14, 2023
Patient having right groin pain, found to have a right groin hematoma. He also complains of back pain from a recent fall.
Objective Data
-
Labs:
Laboratory Results
09/14/23
03:40
WBC 15.0 H
Hgb 14.8
Hct 42.6
Plt Count 323
Sodium 134 L
Potassium 4.2
Chloride 106
Carbon Dioxide 27
BUN 12
Creatinine 0.8
Glucose 106 H
Calcium 8.8
Vital Signs:
Vital Signs
Temp Pulse Resp BP Pulse Ox
97.9 F 87 18 117/79 99
09/14/23 03:47 09/14/23 04:45 09/14/23 03:47 09/14/23 04:45 09/14/23 04:20
I&O
09/13/23 09/14/23 09/15/23
06:59 06:59 06:59
Intake Total 240 / 240 1259 / 1259
Output Total 1275 / 1275
Balance 240 / 240 -16 / -16
--- NOTE | 2023-09-14 08:12 | W.PN.UPDATE ---
Update Note
Progress Note Update
Patient seen at bedside this a.m. Patient states he has back pain that he states he contributes to a recent fall. His right groin site is moderately ecchymotic, soft, no drainage. He denies abdominal pain. Bilateral feet are warm, palpable PT
pulse.
Recommend IR to inject thrombin
Call with questions
[2023-09-14] MEDS: FLUSH (NSS) 2 FLUSH IV (09:01)
[2023-09-14] MEDS: LOPRESSOR 12.5 MG PO (10:09)
[2023-09-14] MEDS: PLAVIX 75 MG PO (10:09)
[2023-09-14] MEDS: LOW STRENGTH ASPIRIN 81 MG PO (10:09)
[2023-09-14] MEDS: MIRALAX 17 GRAMS PO (10:15)
--- NOTE | 2023-09-14 10:43 | W.PN.UPDATE ---
Update Note
Progress Note Update
- Technically successful US guided thrombin injection into R groin PSA. No flow within the PSA following approximately 700 units thrombin injection
- Pt tolerated well. R leg flat for 3 hrs
- Rec repeat US groin ultrasound tomorrow morning
--- NOTE | 2023-09-14 11:40 | CARDSERVLU ---
Echocardiogram with Lumason completed after protocol screening completed. Allergies verified.
Patent IV site: __L AC___
IV site flushed with 0.9% NaCl pre and post administration.
Diluted bolus method utilized to enhance visualization of ventricular braun.
Total volume given: __2.5__ mL
Patient tolerated all procedures well without complications.
--- NOTE | 2023-09-14 11:44 | PTCARENOTE ---
Diabetes Education- Attempted to see Denis, currently having testing in room. Education booklet and information on pre-diabetes classes given to OSEAS Brian who will share with the patient and encourage him to attend. Suggest discussing importance
of reducing CHO intake.
--- NOTE | 2023-09-14 13:20 | W.PN.CARDCBS ---
Addendum entered and electronically signed by Hoang Maldonado MD 09/14/23 16:14:
Attending addendum: Patient seen and examined. I spoke with IR this morning and facilitated U/S thrombin injection with Dr. Tavarez Pseudoaneurysm thrombosed....thankfully.
-He is feeling better. He has been out of bed. Extensive ecchymosis of right groin and pubic area. No bruit. H/H ... in spite of bleeding has remained stable.
-He should remain on aspirin / Plavix
-New expert consensus recommends a LDL of 55 mg/dl for patients considered 'very high risk'. Coronary stent with recurring event would qualify. Will add Zetia 10mg daily
-Repeat vascular ultrasound in am.
Original Note:
Today's Communication / Plan
-
Repeat u/s in AM
Cont DAPT
Will try adding lisinopril 2.5 mg tonight with CO and prediabetes
Impression / Plan
-
PCP: Dr. See
Primary Dinkey Press Operator: Dr. Brown
Assessment:
Presented 09/12/2023 with intermittent chest pain and SOB
NSTEMI, peak Troponin 1.4
CAD
s/p NSTEMI, peak trop 0.3, s/p LAD 2.5 x 23 mm Xience stent (03/17/2022)
s/p 3.0 x 16 mm Promus stent mid Circumflex, patent LAD stent using the ulnar artery with ultrasound guidance w/ Right forearm hematoma 03/27/22
s/p NSTEMI and disruption of the ostial RCA with catheter associated dissection managed with 3.5 mm Xience stent followed, also distal RCA with a 3.0 Xience stent
Unsuccessful Angio-seal with significant post deployment oozing/hematoma 09/13/23, s/p thrombin injection for right groin pseudoaneurysm in IR 09/14/23
Persistent leukocytosis
Left meniscus surgery 03/12/22
Obesity
former smoker
FH of CAD
Prediabetes
ECHO 03/17/22: EF 55-60%, mod cLVH, no significant valvular disease
Echo 09/14/23: Report pending
Plan:
-Troponin peaked at 1.4. Patient has been pain free since Heparin gtt started in [facility]. Echo pending for 09/14/23
-Right groin nontender after thrombin injection in IR on 09/14/23. Hgb stable at 14.8. Repeat u/s scheduled for 09/15/23 AM
-Patient is chronically on aspirin and Plavix following PCI 03/2022. Brilinta was associated with SOB. Cont DAPT.
-Will change Lopressor to 12.5 mg BID
-Patient was not taking ROSARIO/ARB prior to admission. Cre is stable and BP 102/69. Will try a dose of lisinopril 2.5 mg daily starting 09/14/23 PM.
-LDL 69. Cont outpatient dose of atorvastatin 80 mg daily.
-HgbA1c was 6.3% and patient is prediabetic. DM nurse educator in to talk with patient
HPI: He is a 57-year-old male with past medical history of NSTEMI 03/2022, CAD s/p LAD & LCX GRAZYNA, HTN, HLD, obesity, tobacco abuse, family history of premature coronary artery disease who presents to ED 09/12/2023 with chest pain and shortness of
breath. He had NSTEMI w/ LAD GRAZYNA 03/17/2022 then LCX GRAZYNA 03/27/2022 for recurrent angina. He was doing well until about 1 week ago when developed exertional chest pain while walking his dog associated with dyspnea on exertion. Over the weekend he
then started having intermittent chest pain and SOB at rest prompting him to come to the ED. Troponin initially was 1.060 then increased to 1.4. ECG showed sinus rhythm without acute ischemic issues. He was started on IV heparin and has remained CP
free since. At time of the evaluation patient lying comfortably in bed and is CP free. Patient reports that he has been complaint with ASA, Plavix, statin and Lopressor.
Progress Note - Dinkey Press Operator
Subjective
Date of Service: September 14, 2023
He denies chest pain
Objective
Labs:
09/14/23 03:40
09/14/23 03:40
Labs
Hgb 14.8 g/dL (13.0-18.0) 09/14/23 03:40
Hct 42.6 % (39.0-52.0) 09/14/23 03:40
Plt Count 323 10^3/uL (130-400) 09/14/23 03:40
APTT 71.4 Sec (23.4-35.0) H 09/13/23 12:58
Sodium 134 mmol/L (135-145) L 09/14/23 03:40
Potassium 4.2 mmol/L (3.5-5.1) 09/14/23 03:40
BUN 12 mg/dl (9-20) 09/14/23 03:40
Creatinine 0.8 mg/dL (0.7-1.3) 09/14/23 03:40
Glucose 106 mg/dl (70-99) H 09/14/23 03:40
Troponins
09/12/23 09/12/23 09/13/23
16:46 23:34 05:52
Troponin I 1.060 H* 1.310 H* 1.400 H*
09/13/23
12:58
Troponin I 1.040 H* D
Vital Signs and I&O:
Vital Signs
Temp Pulse Resp BP Pulse Ox
98.0 F 86 18 110/80 95
09/14/23 10:25 09/14/23 09:44 09/14/23 10:25 09/14/23 10:09 09/14/23 10:25
Vital Signs
Temp Pulse Resp BP Pulse Ox
98.0 F 86 18 110/80 95
09/14/23 10:25 09/14/23 09:44 09/14/23 10:25 09/14/23 10:09 09/14/23 10:25
Intake & Output
09/12/23 09/13/23 09/14/23 09/15/23
06:59 06:59 06:59 06:59
Intake Total 240 / 240 1259 / 1259
Output Total 1275 / 1275
Balance 240 / 240 -16 / -16
Physical Exam
Physical Exam
GEN: AAO x 3.
HEENT:� EOMI
SKIN: No rash
LUNGS: CTA B/L
CV: Reg
ABD : +BS
EXT: No edema B/L
NEURO: No focal or lateralizing weakness
--- NOTE | 2023-09-14 14:44 | PTCARENOTE ---
educational booklet and pamphlet for classes given to patient regarding his pre diabetes.
[2023-09-14] MEDS: LIPITOR 80 MG PO (19:00)
--- NOTE | 2023-09-14 20:52 | PTCARENOTE ---
assumed care of patient at the change of shift. patient states feeling better. R groin site-ecchymotic, tender to touch. site is soft. b/l LE warm to touch. palpable R PT pulse; + doppler R DP pulse. educated patient to inform RN with any changes.
SR on tele 70s. bp stable. ambulating to the bathroom independently. BM x1 per patient. urinating in the BR. reviewed plan of care with patient and verbalized understanding. call curry within reach. calls appropriately.
[2023-09-14] MEDS: ZETIA 10 MG PO (22:11)
[2023-09-15 03:49] VITALS: BP 118/81
[2023-09-15] MEDS: TYLENOL 650 MG PO (03:50)
[2023-09-15 04:04] LABS: Hematocrit 39.2 % (39.0-52.0); Hemoglobin 13.7 g/dL (13.0-18.0); Mean Corp Hgb Conc. 34.9 g/dL (33.0-37.0); Mean Corpuscular Hgb 30.4 pg (27.0-31.0); Mean Corpuscular Volume 86.9 fL (80.0-94.0); Mean Platelet Volume 9.1 fL (7.4-10.4); Platelet Count 297 10^3/uL (130-400); Red Blood Cell Count 4.51 10^6/uL (4.70-6.10); White Blood Cell Count 13.5 10^3/uL (4.8-10.8)
--- NOTE | 2023-09-15 04:15 | PTCARENOTE ---
patient complaining of some mild 'soreness' lower back and R groin. PRN Tylenol given, see mar. vital signs stable overnight. R groin site stable, no changes.
[2023-09-15 04:28] LABS: Blood Urea Nitrogen 13 mg/dl (9-20); Calcium 9.1 mg/dl (8.4-10.2); Carbon Dioxide 28 mmol/L (22-30); Chloride 101 mmol/L (98-107); Estimated Creatinine Clearance > 125 ml/min; Glucose 102 mg/dl (70-99); Potassium 4.1 mmol/L (3.5-5.1); eGFR > 60.00
[2023-09-15 04:35] LABS: Sodium 133 mmol/L (135-145)
[2023-09-15 07:14] VITALS: BP 125/75
[2023-09-15] MEDS: LOW STRENGTH ASPIRIN 81 MG PO (08:40)
[2023-09-15] MEDS: LOPRESSOR 12.5 MG PO (08:40)
[2023-09-15] MEDS: PLAVIX 75 MG PO (08:40)
[2023-09-15] MEDS: MIRALAX PO (08:44)
--- NOTE | 2023-09-15 09:08 | PTCARENOTE ---
Patient received from second shift supervisor ambulating ad jason in room, AAO X 3. NSR via cm. R groin cdi, ecchymotic, soft. Distal pulse obtainable via doppler. Patient updated to plan of care, expresses desire for d/c home today. See work list for full
assessment and interventions performed.
--- NOTE | 2023-09-15 09:34 | W.PN.HOSP.TC ---
Today's Communication/Plan
-
Stable for discharge today
Assessment / Plan
Assessment / Plan
# NSTEMI
History of coronary artery disease status post stent placement x 2
Troponin peaked at 1.4, now downtrending
Appreciate cardiology input, s/p cardiac catheterization w/ stent x 2 to RCA
S/p heparin ggt
Continue aspirin, Plavix, atorvastatin, metoprolol
Medically stable for discharge, follow-up with cardiology in the office, and his PCP in 1 week
LDL at goal at 69
#Right groin pseudoaneurysm
Patient received ultrasound-guided thrombin injection on 09/13
Repeat groin ultrasound shows successful thrombosis of pseudoaneurysm status post thrombin injection
#Lower back pain status post fall
Continue oxycodone as needed
#Glucose intolerance #prediabetes
Hemoglobin A1c 6.3
Consulted diabetes nurse practitioner for diabetes education
# Chronic leukocytosis
Patient is afebrile
No signs or symptoms of infection, continue to monitor off antibiotics
#Hyperlipidemia
Continue statin
#Morbid obesity due to excess calories
Affects all aspects of care
DVT prophylaxis�SCDs due to R groin pseudoaneurysm
Full code
Updated at bedside 09/12
Physical Exam
General: Obese, no acute distress
HEENT: Normocephalic, Atraumatic, EOMI, MMM
GI: Soft, Nontender, Nondistended, Normal Bowel Sounds
+R groin pseudoaneurysm noted
Extremities: No Clubbing, Cyanosis, or Edema
Neuro: Nonfocal/Grossly Intact
Anticipated Discharge: Today
Subjective/Interval History
-
Date of Service: September 15, 2023
Patient reports his right groin is sore. Denies chest pain, shortness of breath. No fever, no chills.
Objective Data
-
Labs:
Laboratory Results
09/15/23
03:51
WBC 13.5 H
Hgb 13.7
Hct 39.2
Plt Count 297
Sodium 133 L
Potassium 4.1
Chloride 101
Carbon Dioxide 28
BUN 13
Creatinine 0.9
Glucose 102 H
Calcium 9.1
Vital Signs:
Vital Signs
Temp Pulse Resp BP Pulse Ox
98.1 F 79 18 125/75 96
09/15/23 07:13 09/15/23 09:00 09/15/23 07:13 09/15/23 08:40 09/15/23 09:04
I&O
09/14/23 09/15/23 09/16/23
06:59 06:59 06:59
Intake Total 1259 / 1259 240 / 240 250 / 250
Output Total 1275 / 1275
Balance -16 / -16 240 / 240 250 / 250
--- NOTE | 2023-09-15 10:34 | CM ---
Reviewed chart. Met with Mr. Umaña to review discharge plans. He states he is felling better and is hoping he can go home soon. Prior to admission he resides with his spouse in a two story home with two steps to enter. He has a full flight of
steps to get to bedroom/full bathroom. Prior to admission he was independent with ambulation and adls. He states he does have anby DME in the home. He has a prescription plan and uses [facility]. Medical work-up in progress. The discharge plan
is to return home with his spouse when medically stable.
[2023-09-15 11:13] VITALS: BP 127/72
--- NOTE | 2023-09-15 11:21 | PTCARENOTE ---
Patient returned from U/S, VS obtained, assessment stable. Dr. Wilde to bedside, updated to status. Patient resting comfortably.
--- NOTE | 2023-09-15 12:46 | W.PN.CARDCBS ---
Today's Communication / Plan
-
D/C to home
E-scribed lisinopril and Zetia. He already has active Rx for Plavix
Impression / Plan
-
PCP: Dr. See
Primary Hospice Care Consultant: Dr. Brown
Assessment:
Presented 09/12/2023 with intermittent chest pain and SOB
NSTEMI, peak Troponin 1.4
CAD
s/p NSTEMI, peak trop 0.3, s/p LAD 2.5 x 23 mm Xience stent (03/17/2022)
s/p 3.0 x 16 mm Promus stent mid Circumflex, patent LAD stent using the ulnar artery with ultrasound guidance w/ Right forearm hematoma 03/27/22
s/p NSTEMI and disruption of the ostial RCA with catheter associated dissection managed with 3.5 mm Xience stent followed, also distal RCA with a 3.0 Xience stent
Unsuccessful Angio-seal with significant post deployment oozing/hematoma 09/13/23, s/p thrombin injection for right groin pseudoaneurysm in IR 09/14/23
Persistent leukocytosis
Left meniscus surgery 03/12/22
Obesity
former smoker
FH of CAD
Prediabetes
ECHO 03/17/22: EF 55-60%, mod cLVH, no significant valvular disease
Echo 09/14/23: EF 55-60%, no MR, no
Plan:
-Troponin peaked at 1.4. Patient has been pain free since admission.
-EF stable by echo
-Right groin nontender after thrombin injection in IR on 09/14/23 and repeat vascular u/s 09/15/23 was stable.
-Hgb stable at 13.7. Reviewed activity limitations. 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
-Patient is chronically on aspirin and Plavix following PCI 03/2022. Brilinta was associated with SOB. Cont DAPT.
-Correct dose of Lopressor to 12.5 mg BID now listed on d/c med list
-New to lisinopril 2.5 mg daily. Will need repeat BMP that can be ordered at upcoming cardiology office visit
-LDL 69. Cont outpatient dose of atorvastatin 80 mg daily and Zetia 10 mg daily added
-Cardiology f/u arrange and patient is stable for d/c.
HPI: He is a 57-year-old male with past medical history of NSTEMI 03/2022, CAD s/p LAD & LCX GRAZYNA, HTN, HLD, obesity, tobacco abuse, family history of premature coronary artery disease who presents to ED 09/12/2023 with chest pain and shortness of
breath. He had NSTEMI w/ LAD GRAZYNA 03/17/2022 then LCX GRAZYNA 03/27/2022 for recurrent angina. He was doing well until about 1 week ago when developed exertional chest pain while walking his dog associated with dyspnea on exertion. Over the weekend he
then started having intermittent chest pain and SOB at rest prompting him to come to the ED. Troponin initially was 1.060 then increased to 1.4. ECG showed sinus rhythm without acute ischemic issues. He was started on IV heparin and has remained CP
free since. At time of the evaluation patient lying comfortably in bed and is CP free. Patient reports that he has been complaint with ASA, Plavix, statin and Lopressor.
Progress Note - Hospice Care Consultant
Subjective
Date of Service: September 15, 2023
He feels well and really wants to go home
Objective
Labs:
09/15/23 03:51
09/15/23 03:51
Labs
Hgb 13.7 g/dL (13.0-18.0) 09/15/23 03:51
Hct 39.2 % (39.0-52.0) 09/15/23 03:51
Plt Count 297 10^3/uL (130-400) 09/15/23 03:51
APTT 71.4 Sec (23.4-35.0) H 09/13/23 12:58
Sodium 133 mmol/L (135-145) L 09/15/23 03:51
Potassium 4.1 mmol/L (3.5-5.1) 09/15/23 03:51
BUN 13 mg/dl (9-20) 09/15/23 03:51
Creatinine 0.9 mg/dL (0.7-1.3) 09/15/23 03:51
Glucose 102 mg/dl (70-99) H 09/15/23 03:51
Troponins
09/12/23 09/12/23 09/13/23
16:46 23:34 05:52
Troponin I 1.060 H* 1.310 H* 1.400 H*
09/13/23
12:58
Troponin I 1.040 H* D
Vital Signs and I&O:
Vital Signs
Temp Pulse Resp BP Pulse Ox
98.4 F 63 16 127/72 98
09/15/23 11:14 09/15/23 11:14 09/15/23 11:14 09/15/23 11:13 09/15/23 11:14
Vital Signs
Temp Pulse Resp BP Pulse Ox
98.4 F 63 16 127/72 98
09/15/23 11:14 09/15/23 11:14 09/15/23 11:14 09/15/23 11:13 09/15/23 11:14
Intake & Output
09/13/23 09/14/23 09/15/23 09/16/23
06:59 06:59 06:59 06:59
Intake Total 240 / 240 1259 / 1259 240 / 240 250 / 250
Output Total 1275 / 1275
Balance 240 / 240 -16 / -16 240 / 240 250 / 250
Physical Exam
Physical Exam
GEN: AAO x 3.
HEENT:� EOMI
SKIN: No rash
LUNGS: CTA B/L
CV: Reg
ABD : +BS
EXT: No edema B/L
NEURO: No focal or lateralizing weakness
--- NOTE | 2023-09-15 13:11 | W.DCSUMMARY ---
Discharge Summary
Discharge Data
Date of Admission: 09/12/23
Date of Discharge: 09/15/23
-
Pending Results: No
Hospital Course
Discharge diagnosis:
Non-ST elevation myocardial infarction status post cardiac catheterization with stent placement x 2
Right groin pseudoaneurysm
Lower back pain status post fall
Chronic leukocytosis
Hyperlipidemia
Glucose intolerance
Obesity due to excess calories
Consults: Cardiology
Procedures:
09/13/2023
1.� Left heart catheterization with coronary and single-plane left ventriculography
2.� Disruption of the ostial RCA with catheter associated dissection.� Successful stenting with placement of a 3.5 x 23 mm Xience stent that was postdilated to high pressures with a 3.75 mm noncompliant balloon
3.� Successful stenting of the distal RCA with a 3.0 x 23 mm Xience stent that was postdilated with a 3 mm noncompliant balloon distally and a 3.75 mm noncompliant balloon proximally
Hospital course:
57-year-old male with past medical history of NSTEMI 03/2022, CAD s/p LAD & LCX GRAZYNA, HTN, HLD, obesity, tobacco abuse, and family history of premature coronary artery disease who presents to ED 09/12/2023 with chest pain and shortness of breath.
Patient's troponin peaked at 1.4, and trended down. EKG shows sinus rhythm without any acute ischemia. Patient was seen in conjunction cardiology, and treated with IV heparin. His chest pain resolved. He is maintained on aspirin, Plavix, statin,
and Lopressor.
His LDL is at goal, he is continued on his statin. Cardiology added Zetia. His hemoglobin A1c is elevated at 6.3. Informed him and his that he has prediabetes or glucose intolerance. He received diabetes education regarding low carbohydrate
diet.
Patient underwent cardiac catheterization with stent placement x 2 on 09/13/2023. His IV heparin drip was stopped. His hospital course was complicated by right groin pseudoaneurysm. He received thrombin injection by interventional radiology on
09/14/2023. Repeat ultrasound on 09/15/2023 showed successful thrombosis of pseudoaneurysm.
Patient reports falling, and having lower back pain. He was treated with Tylenol and oxycodone. He will be discharged on Tylenol, oxycodone, and MiraLAX.
He is medically stable for discharge. He needs to follow-up with cardiology in the office, as well as his primary care doctor 1 week.
Disposition: Home self-care
Discharge planning: Required 37 minutes
Discharge Plan
-
Patient Disposition: Home (Routine Discharge)
Discharge Diagnosis/Procedures: NSTEMI, s/p angioplasty and stent x 2 to Right Coronary artery, right groin hematoma, back pain, prediabetes
Condition: Good
Diet: Low Fat and Diabetic, Carb Controlled
Activity: Other activity
Additional Activity: See attached sheet
Driving Restrictions: No driving for 24 hours
Bathing Restrictions: OK to Shower
Other Services: Cardiac Rehab
Activity Restrictions/Additional Instructions:
Please call to make appointments for Phase II Cardiac Rehab:
1.) [place] - [phone] (closest to work~ 7 min)
2.) [facility]- (close to work) [phone]
3.) [facility] (close to home) [phone]
Stand Alone Forms: DC Instructions- Cath/EP Lab
Referrals:
Georgina Mendenhall CRNP [Specified Professional Personl] - 09/30/23 4:20 pm (Cardiolgoy followup appointment)
Sterling See DO [Family Provider] - in one week
Additional Discharge Medication Instructions: -Start taking Zetia (ezetimibe) in addition to atorvastatin for better cholesterol control.
-Take lisinopril in addition to metoprolol tartrate (Lopressor) for medical therapy for heart attack.
Prescriptions:
New
lisinopril 2.5 mg Tablet
2.5 mg PO DAILY Qty: 30 11RF
ezetimibe 10 mg Tablet
10 mg PO HS Qty: 30 11RF
metoprolol tartrate 25 mg Tablet
12.5 mg PO BID Qty: 60 0RF
oxycodone 5 mg Tablet
5 mg PO Q4HPRN PRN (Reason: pain) Qty: 20 0RF
acetaminophen 500 mg tablet
1,000 mg PO TID @ 0800,1200,1700 7 Days Qty: 42 0RF
polyethylene glycol 3350 17 gram/dose powder
17 g PO DAILY Qty: 238 0RF
Continued
atorvastatin 80 mg Tablet
80 mg PO QPM 30 Days Qty: 30 0RF
aspirin 81 mg Tablet,Chewable
81 mg PO DAILY 30 Days Qty: 30 0RF
clopidogrel 75 mg Tablet
75 mg PO DAILY Qty: 90 5RF
pantoprazole 40 mg tablet,delayed release (DR/EC)
40 mg PO DAILY
Discontinued
metoprolol tartrate 25 mg tablet
12.5 mg PO DAILY
Discharge Orders:
Discharge Patient (As Directed); Ordered 09/15/23
Ordered By: Des Wilde
Care Plan Goals
Care Plan Goals:
Problem: Readiness for enhanced knowledge related to diagnosis and treatment plan
Goal: Understand your diagnosis and treatment plan needs, including medications if applicable.
Instructions: Know your diagnosis, underlying causes and treatment plan options, including medications if applicable. Consult with your health care team to learn about your diagnosis and treatment plan, including medications if applicable.
Discharge Date and Time
Discharge Date/Time: 09/15/23 14:23
--- NOTE | 2023-09-15 13:53 | PTCARENOTE ---
PIV removed. Discharge instructions thoroughly reviewed w/patient and spouse, all questions answered. Patient discharged to waiting vehicle for d/c home.
== END 2023-09-15 14:23 | disposition home or self-care (01) | DRG 321 ==
LOC: IVU 18:51
PROVIDERS: Internal Medicine Interventional Cardiology; Nurse Practitioner; Radiology Diagnostic Radiology; Registered Nurse; Student in an Organized Health Care Education/Training Program; ADMITTING PHYSICIAN Internal Medicine; ATTENDING PHYSICIAN Family Medicine; EMERGENCY PHYSICIAN Emergency Medicine; FAMILY PHYSICIAN Family Medicine; OTHER PHYSICIAN Internal Medicine Cardiovascular Disease; OTHER PHYSICIAN Surgery Vascular Surgery
PROC: 4A023N7 Measurement of Cardiac Sampling and Pressure, Left Heart, Percutaneous Approach (ICD-10-PCS; 2023-09-13)
PROC: 027035Z Dilation of Coronary Artery, One Artery with Two Drug-eluting Intraluminal Devices, Percutaneous Approach (ICD-10-PCS; 2023-09-13)
PROC: B2151ZZ Fluoroscopy of Left Heart using Low Osmolar Contrast (ICD-10-PCS; 2023-09-13)
PROC: B2111ZZ Fluoroscopy of Multiple Coronary Arteries using Low Osmolar Contrast (ICD-10-PCS; 2023-09-13)
PROC: 3E053GC Introduction of Other Therapeutic Substance into Peripheral Artery, Percutaneous Approach (ICD-10-PCS; 2023-09-14)
DX: I21.4 Non-ST elevation (NSTEMI) myocardial infarction (principal); I25.42 Coronary artery dissection; I97.630 Postprocedural hematoma of a circulatory system organ or structure following a cardiac catheterization; I97.51 Accidental puncture and laceration of a circulatory system organ or structure during a circulatory system procedure; I72.4 Aneurysm of artery of lower extremity; Y84.0 Cardiac catheterization as the cause of abnormal reaction of the patient, or of later complication, without mention of misadventure at the time of the procedure; D72.829 Elevated white blood cell count, unspecified; E78.00 Pure hypercholesterolemia, unspecified; E74.39 Other disorders of intestinal carbohydrate absorption; E66.01 Morbid (severe) obesity due to excess calories; M54.50 Low back pain, unspecified; I25.110 Atherosclerotic heart disease of native coronary artery with unstable angina pectoris; I10 Essential (primary) hypertension; F17.200 Nicotine dependence, unspecified, uncomplicated; R73.03 Prediabetes; W19.XXXS Unspecified fall, sequela; Z68.38 Body mass index [BMI] 38.0-38.9, adult; I25.2 Old myocardial infarction; Z82.49 Family history of ischemic heart disease and other diseases of the circulatory system; Z79.82 Long term (current) use of aspirin; Z79.02 Long term (current) use of antithrombotics/antiplatelets; Z95.5 Presence of coronary angioplasty implant and graft
CPT/HCPCS: 36002; 71046; 74174; 76942; 80048; 80053; 80061; 82550; 82553; 83036; 84484; 85014; 85018; 85025; 85027; 85347; 85730; 86850; 86900; 86901; 93005; 93306; 93458; 93926; 99291; C1725; C1760; C1769; C1874; C1894; C9600; Q9950; Q9967

== ENCOUNTER 2023-09-29 14:11 | Emergency (ER) | payer OTHER, SELFPAY ==
[2023-09-29 14:14] VITALS: BP 121/72
[2023-09-29 14:58] VITALS: BP 117/68; BMI 38.5
[2023-09-29 15:28] LABS: % Basophils 0.7 % (0-2); % Eosinophils 1.9 % (0-6); % Immature Granulocytes 0.4 % (0-0.5); % Lymphocytes 28.1 % (20.5-51.1); % Neutrophils 60.9 % (42.2-75.2); Absolute Basophils 0.1 10^3/uL (0-0.2); Absolute Eosinophils 0.2 10^3/uL (0-0.7); Absolute Immature Granulocytes 0.1 10^3/uL (0-0.05); Absolute Lymphocytes 3.2 10^3/uL (1.2-3.4); Absolute Monocytes 0.9 10^3/uL (0.1-0.6); Hematocrit 39.8 % (39.0-52.0); Mean Corp Hgb Conc. 35.2 g/dL (33.0-37.0); Mean Corpuscular Hgb 30.4 pg (27.0-31.0); Mean Corpuscular Volume 86.5 fL (80.0-94.0); Mean Platelet Volume 9.1 fL (7.4-10.4); Nucleated Red Blood Cells % 0 % (-); Platelet Count 365 10^3/uL (130-400); Red Cell Dist. Width 12.6 % (11.5-14.5); White Blood Cell Count 11.5 10^3/uL (4.8-10.8)
--- NOTE | 2023-09-29 15:32 | ED.GENMED ---
History of Present Illness
General
Chief Complaint: Chest Pain
Source: patient
Time Seen by Provider: 09/29/23 15:04
Travel History
Have you had any contact with someone who has COVID-19?: No
Do you have any symptoms of coronavirus? Fever > 100 degrees, chills, cough, shortness of breath, sore throat, loss of taste or smell, muscle aches, or headache?: No
History of Present Illness
History of Present Illness:
57-year-old male presents to the emergency room complaining of chest pain, dizziness, fatigue. Patient was discharged here from [place] on September 14 after a hospitalization for a NSTEMI. Patient had a cardiac catheterization performed during
that hospitalization which resulted in 2 stents. The procedure was performed via the right groin and patient had a pseudoaneurysm requiring thrombin injection. Patient was discharged on Zetia, metoprolol, lisinopril. Patient expresses concern
that metoprolol made him feel poorly after his last heart attack and he believes that the metoprolol may be contributing to his symptoms today. No fever or chills. No cough or shortness of breath. No associated diaphoresis or nausea.
Past History
Past History
ED Past Medical History: CAD, HTN and Other (Kidney stones)
ED Past Surgical History: Cardiac and Other (Fistula X2,)
Social History
Tobacco: Smoker
Alcohol: Occasional
Drug: None
Personal:
Living: with family
Employment: Employed
Phy Exam
Physical Exam
Physical Exam:
General: Awake, Alert, Oriented X3. No acute distress.
Vitals: unremarkable
Head: Atraumatic
Eyes: Pupils equal, EOMI
Throat: Airway intact, no exudates
Neck: Trachea midline
Lungs: Clear and equal b/l
Heart: Regular rate, no murmurs
Abd: Soft, Nontender, No pulsatile mass
Neuro: Nonfocal
Skin: Warm, dry, no rash
Extremities: pulses equal b/l, no edema
Scores
Heart Score for Chest Pain Patients
STEMI patient?: No
History: Moderately Suspicious
ECG: Normal
Age: >45 - <65 years
Risk Factors: >/= 3 Risk Factors or History of CAD
Troponin: </= Normal Limit
Heart Score for Chest Pain Patients: 4
Heart Score Risk: 20.3% MACE over next 6 weeks
Course
Orders/Labs/Results
Orders:
Orders
09/29/23 14:13
EKG [Electrocardiogram (*1)] Urgent
Reason for Study: Chest Pain
EKG- Treatment ONCE
09/29/23 15:09
Complete Blood Count/With Diff Urgent
Troponin I Urgent
09/29/23 15:39
Comprehensive Metabolic Panel Urgent
09/29/23 17:24
EKG [Electrocardiogram (*1)] Routine
Reason for Study: Chest Pain
09/29/23 17:25
EKG- Treatment ONCE
09/29/23 18:30
Troponin I Urgent
Abnormal Lab Results
09/29/23 09/29/23
15:09 15:39
WBC 11.5 H 10^3/uL
(4.8-10.8)
RBC 4.60 L 10^6/uL
(4.70-6.10)
Abs Immat Gran (auto) 0.1 H 10^3/uL
(0-0.05)
Absolute Neuts (auto) 7.0 H 10^3/uL
(1.4-6.5)
Absolute Monos (auto) 0.9 H 10^3/uL
(0.1-0.6)
Sodium 134 L mmol/L
(135-145)
Glucose 137 H mg/dl
(70-99)
Total Protein 6.1 L g/dl
(6.3-8.2)
09/29/23 15:09
09/29/23 15:39
Vital Signs
Initial and Last Documented VS:
Initial Vital Signs
Temp Pulse Resp BP Pulse Ox
97.9 F 80 16 121/72 98
09/29/23 14:14 09/29/23 14:14 09/29/23 14:14 09/29/23 14:14 09/29/23 14:14
Last Documented Vital Signs
Temp Pulse Resp BP Pulse Ox
97.9 F 79 21 129/71 96
09/29/23 14:14 09/29/23 19:00 09/29/23 19:00 09/29/23 19:00 09/29/23 15:11
MDM/Problems Addressed
Differential Diagnosis Includes:
ACS, indu syndrome, chest wall pain
MDM/Problems Addressed:
Patient presents with chest pain. His troponin is normal x 2. EKG shows no acute ischemic changes and remained stable. Patient stable for discharge home. Has normal cardiology tomorrow.
Chronic conditions affecting care: DM, HTN and CAD
*Pulse Oximetry
Patient hypoxic: no
*EKG
Interpreted by ED Provider?: Yes
Interpretation: normal
Heart Rate: 72
Rate: normal
Rhythm: sinus
[place]: normal axis
Interval: normal interval
QRS Pattern: normal QRS
Ischemia: no ischemia
*Mobile Lounge Driver Or Operator Interpretation
Rate: normal
Interpretation: normal
Heart Rate: 72
Rhythm: sinus
*Critical Care Note
Total Time (30-74mins, 75-104mins- exclusive of procedures): Not Applicable
Data Reviewed
Review of Other/Old Records Reveals: Operative Reports (Cardiac cath report, pseudoaneurysm injection report, vascular notes) and Testing (Echocardiogram report)
ED Attending Note
-
Portions of this chart may have been created with voice recognition software.� Occasional wrong word or��sound alike� substitutions may have occurred due to the inherent limitations of voice recognition software.
Discharge Plan
Departure
Patient Disposition: Home (Routine Discharge)
Date of Disposition: 09/29/23
Time of Disposition: 19:03
Patient with high blood pressure during this ER visit?: Yes
Condition: Good
Discharge Problem:
Chest pain
Instructions: Chest Pain DCA Follow Up, BLOOD PRESSURE
Prescriptions:
No Action
atorvastatin 80 mg Tablet
80 mg PO QPM 30 Days Qty: 30 0RF
aspirin 81 mg Tablet,Chewable
81 mg PO DAILY 30 Days Qty: 30 0RF
clopidogrel 75 mg Tablet
75 mg PO DAILY Qty: 90 5RF
pantoprazole 40 mg tablet,delayed release (DR/EC)
40 mg PO DAILY
lisinopril 2.5 mg Tablet
2.5 mg PO DAILY Qty: 30 11RF
ezetimibe 10 mg Tablet
10 mg PO HS Qty: 30 11RF
metoprolol tartrate 25 mg Tablet
12.5 mg PO BID Qty: 60 0RF
oxycodone 5 mg Tablet
5 mg PO Q4HPRN PRN (Reason: pain) Qty: 20 0RF
acetaminophen 500 mg tablet
1,000 mg PO TID @ 0800,1200,1700 7 Days Qty: 42 0RF
polyethylene glycol 3350 17 gram/dose powder
17 g PO DAILY Qty: 238 0RF
Referrals:
Sterling See DO [Family Provider] -
Activity Restrictions/Additional Instructions:
Please keep your appointment with cardiology.
Interventions
Interventions:
*Risk Screen - Suicide Last Done: 09/29/23 14:14
*General Assessment Last Done: 09/29/23 14:14
*Neglect/Abuse Screening Last Done: 09/29/23 14:14
ED- Fall Risk Assessment Last Done: 09/29/23 14:59
*ED COVID-19 Vaccine History Last Done: 09/29/23 14:59
*Nursing Disposition Last Done: 09/29/23 19:17
ED- Cardiac Assessment Last Done: 09/29/23 14:59
Discharge Date and Time
Discharge Date/Time: 09/29/23 19:19
Print Language: CZECH
[2023-09-29 15:51] LABS: Troponin I < 0.012 ng/ml
[2023-09-29 16:06] LABS: ALT (SGPT) 21 U/L (0-50); AST (SGOT) 20 U/L (17-59); Albumin 3.8 g/dl (3.5-5.0); Alkaline Phosphatase 55 U/L (38-126); Blood Urea Nitrogen 17 mg/dl (9-20); Calcium 9.4 mg/dl (8.4-10.2); Carbon Dioxide 25 mmol/L (22-30); Chloride 102 mmol/L (98-107); Estimated Creatinine Clearance > 125 ml/min; Glucose 137 mg/dl (70-99); Sodium 134 mmol/L (135-145); Total Bilirubin 0.5 mg/dl (0.2-1.3); Total Protein 6.1 g/dl (6.3-8.2); eGFR > 60.00
[2023-09-29 16:15] VITALS: BP 119/62
[2023-09-29 17:00] VITALS: BP 119/76
[2023-09-29 18:00] VITALS: BP 125/89
[2023-09-29 19:00] VITALS: BP 129/71
[2023-09-29 19:00] LABS: Troponin I < 0.012 ng/ml
== END 2023-09-29 19:19 | disposition home or self-care (01) ==
LOC: EMR 14:11
PROVIDERS: Emergency Medicine; EMERGENCY PHYSICIAN Emergency Medicine; FAMILY PHYSICIAN Family Medicine
DX: R07.89 Other chest pain (principal); I10 Essential (primary) hypertension; E11.9 Type 2 diabetes mellitus without complications; I25.10 Atherosclerotic heart disease of native coronary artery without angina pectoris; F17.200 Nicotine dependence, unspecified, uncomplicated
CPT/HCPCS: 99284; 80053; 84484; 85025; 93005

== ENCOUNTER 2024-11-24 13:01 | Emergency (ER) | payer BC, SELFPAY ==
[2024-11-24] VITALS (7 sets, daily range): BP systolic 111–125; BP diastolic 68–84
--- NOTE | 2024-11-24 14:17 | ED.GENMED ---
History of Present Illness
General
Chief Complaint: Chest Pain
Source: patient
Exam Limitations: none
Time Seen by Provider: 11/24/24 14:16
Nursing documentation reviewed up to this point in time: agreed with
History of Present Illness
History of Present Illness:
59-year-old male presents to the emergency department complaining of pain inside of his chest and tenderness. This began when he woke up at 4:30 AM. He denies any fever or cough.
Past History
Past History
ED Past Medical History: CAD, HTN and Other (Kidney stones)
ED Past Surgical History: Cardiac and Other (Fistula X2,)
Social History
Tobacco: Smoker
Alcohol: Occasional
Drug: None
Personal:
Living: with family
Employment: Employed
Review of Systems
Review of Systems
Allergies reviewed?: Yes
All Other Systems: Not applicable
Constitutional: Reports no symptoms
EENT: Reports no symptoms
Respiratory: Reports trouble breathing
Cardiac: Reports chest pain
ABD/GI: Reports no symptoms
: Reports no symptoms
Musculoskeletal: Reports no symptoms
Skin: Reports no symptoms
Neurological: Reports no symptoms
Endocrine: Reports no symptoms
Hematologic/Lymphatic: Reports no symptoms
Psychiatric: Reports no symptoms
Phy Exam
Physical Exam
Physical Exam:
Physical Exam
General: no apparent distress, not acutely ill
Neck: supple. no meningeal signs. normal posterior pharynx
Heart: s1/s2 regular rate and rhythm, no murmur. equal radial
pulses.
HEENT: Pupils equal round reactive to light, EOMI
Lungs: no acute respiratory distress. clear bilaterally, chest wall tender to palpation
Abdomen: normal bowel sounds. not tender. no CVAT
Neuro: alert and oriented. no focal neurological deficits cranial nerves II through XII intact
Skin: no rash
Psychiatric: well kept. interactive and cooperative
Extremities: no edema. no calf tenderness. negative homans. good distal pulses
Scores
Heart Score for Chest Pain Patients
STEMI patient?: No
History: Slightly or Non-Suspicious
ECG: Normal
Age: >45 - <65 years
Risk Factors: >/= 3 Risk Factors or History of CAD
Troponin: </= Normal Limit
Heart Score for Chest Pain Patients: 3
Heart Score Risk: 2.5% MACE over next 6 weeks
Course
Orders/Labs/Results
Orders:
Orders
11/24/24 13:02
EKG [Electrocardiogram (*1)] Urgent
Reason for Study: Chest Pain
EKG- Treatment ONCE
11/24/24 14:29
Cardiac Monitoring- Treatment ONCE
CR Chest - 2 Views Urgent
Comment:
Reason For Exam: chest pain
11/24/24 14:34
Complete Blood Count/With Diff Urgent
Comprehensive Metabolic Panel Urgent
NT-proBNP Urgent
Troponin I Urgent
11/24/24 17:25
Troponin I Urgent
Abnormal Lab Results
11/24/24
14:34
WBC 11.0 H 10^3/uL
(4.8-10.8)
Absolute Lymphs (auto) 4.3 H 10^3/uL
(1.2-3.4)
Absolute Monos (auto) 1.0 H 10^3/uL
(0.1-0.6)
Glucose 103 H mg/dl
(70-99)
11/24/24 14:34
11/24/24 14:34
Vital Signs
Initial and Last Documented VS:
Initial Vital Signs
Temp Pulse Resp BP Pulse Ox
98.3 F 79 15 124/80 97
11/24/24 13:03 11/24/24 13:03 11/24/24 13:03 11/24/24 13:03 11/24/24 13:03
Last Documented Vital Signs
Temp Pulse Resp BP Pulse Ox
98.3 F 68 27 112/73 100
11/24/24 13:03 11/24/24 18:30 11/24/24 18:30 11/24/24 18:00 11/24/24 18:30
MDM/Problems Addressed
Differential Diagnosis Includes:
ACS, PE
MDM/Problems Addressed:
59-year-old male with chest pain, likely chest wall pain. Serial troponins negative.
Chronic conditions affecting care: CAD
*Radiology
Radiology exam reviewed: radiology read reviewed (Chest x-ray no acute findings)
*Pulse Oximetry
Patient hypoxic: no
*EKG
Interpreted by ED Provider?: Yes
EKG Intrepretation Date: 11/24/24
EKG Intrepretation Time: 13:06
Interpretation: abnormal
Comparison EKG: changes noted
Heart Rate: 78
Rate: normal
Rhythm: sinus and PVC's
[place]: normal axis
Interval: normal interval
QRS Pattern: normal QRS
Ischemia: no ischemia
*Shear Setter Interpretation
Rate: normal
Interpretation: normal
Heart Rate: 75
Rhythm: sinus
*Critical Care Note
Total Time (30-74mins, 75-104mins- exclusive of procedures): Not Applicable
Data Reviewed
Review of Other/Old Records Reveals: Testing (Stent in LAD 2021)
Source: records
Further Testing Considered But Not Given:
CT chest not indicated
Patient Management
Social determinants of health affecting care: Living situation and Strong social support
Escalation/DeEscalation of care consider admission/obs:
Admit not indicated
ED Attending Note
-
Portions of this chart may have been created with voice recognition software.� Occasional wrong word or��sound alike� substitutions may have occurred due to the inherent limitations of voice recognition software.
Discharge Plan
Departure
Patient Disposition: Home (Routine Discharge)
Date of Disposition: 11/24/24
Time of Disposition: 18:35
Patient with high blood pressure during this ER visit?: No
Condition: Good
Discharge Problem:
Chest pain
Instructions: Chest Pain DCA Follow Up
Prescriptions:
No Action
atorvastatin 80 mg Tablet
80 mg PO QPM 30 Days Qty: 30 0RF
aspirin 81 mg Tablet,Chewable
81 mg PO DAILY 30 Days Qty: 30 0RF
clopidogrel 75 mg Tablet
75 mg PO DAILY Qty: 90 5RF
pantoprazole 40 mg tablet,delayed release (DR/EC)
40 mg PO DAILY
lisinopril 2.5 mg Tablet
2.5 mg PO DAILY Qty: 30 11RF
ezetimibe 10 mg Tablet
10 mg PO HS Qty: 30 11RF
metoprolol tartrate 25 mg Tablet
12.5 mg PO BID Qty: 60 0RF
oxycodone 5 mg Tablet
5 mg PO Q4HPRN PRN (Reason: pain) Qty: 20 0RF
acetaminophen 500 mg tablet
1,000 mg PO TID @ 0800,1200,1700 7 Days Qty: 42 0RF
polyethylene glycol 3350 17 gram/dose powder
17 g PO DAILY Qty: 238 0RF
Referrals:
Sterling See DO [Family Provider] -
Interventions
Interventions:
*Risk Screen - Suicide Last Done: 11/24/24 13:03
*General Assessment Last Done: 11/24/24 13:03
*Neglect/Abuse Screening Last Done: 11/24/24 13:03
*ED COVID-19 Vaccine History Last Done: 11/24/24 18:41
*Nursing Disposition Last Done: 11/24/24 18:41
ED- Cardiac Assessment Last Done: 11/24/24 18:40
Discharge Date and Time
Discharge Date/Time: 11/24/24 19:04
Print Language: FAROESE
[2024-11-24 14:47] LABS: % Basophils 0.9 % (0-2); % Eosinophils 2.6 % (0-6); % Immature Granulocytes 0.4 % (0-0.5); % Monocytes 9.3 % (1.7-9.3); % Neutrophils 47.8 % (42.2-75.2); Absolute Basophils 0.1 10^3/uL (0-0.2); Absolute Eosinophils 0.3 10^3/uL (0-0.7); Absolute Lymphocytes 4.3 10^3/uL (1.2-3.4); Absolute Neutrophils 5.3 10^3/uL (1.4-6.5); Hematocrit 46.3 % (39.0-52.0); Mean Corp Hgb Conc. 34.6 g/dL (33.0-37.0); Mean Corpuscular Hgb 30.2 pg (27.0-31.0); Mean Corpuscular Volume 87.5 fL (80.0-94.0); Mean Platelet Volume 9.5 fL (7.4-10.4); Nucleated Red Blood Cells % 0 % (-); Platelet Count 339 10^3/uL (130-400); Red Blood Cell Count 5.29 10^6/uL (4.70-6.10); Red Cell Dist. Width 12.4 % (11.5-14.5)
[2024-11-24 14:56] LABS: ALT (SGPT) 26 U/L (0-50); AST (SGOT) 22 U/L (17-59); Albumin 4.2 g/dl (3.5-5.0); Alkaline Phosphatase 66 U/L (38-126); Blood Urea Nitrogen 13 mg/dl (9-20); Calcium 9.6 mg/dl (8.4-10.2); Carbon Dioxide 27 mmol/L (22-30); Chloride 105 mmol/L (98-107); Glucose 103 mg/dl (70-99); Potassium 4.5 mmol/L (3.5-5.1); Sodium 138 mmol/L (135-145); Total Bilirubin 0.7 mg/dl (0.2-1.3); Total Protein 6.7 g/dl (6.3-8.2); eGFR > 60.00
[2024-11-24 15:07] LABS: NT-proBNP 33.7 pg/ml; Troponin I < 0.012 ng/ml
[2024-11-24 17:55] LABS: Troponin I 0.013 ng/ml
== END 2024-11-24 19:04 | disposition home or self-care (01) ==
LOC: EMR 13:01
PROVIDERS: EMERGENCY PHYSICIAN Emergency Medicine; FAMILY PHYSICIAN Family Medicine
DX: R07.89 Other chest pain (principal); F17.200 Nicotine dependence, unspecified, uncomplicated; I25.10 Atherosclerotic heart disease of native coronary artery without angina pectoris
CPT/HCPCS: 99285; 71046; 80053; 83880; 84484; 85025; 93005